=== PATIENT | female | born 1980 | race African-American/Black ===

== ENCOUNTER 2024-03-13 14:30 | Emergency (ER) | payer OTHER ==
[~2024-03-13] VITALS: Ht 157.5 cm; Wt 61.4 kg
[2024-03-13 14:34] VITALS: TEMP 98.2
[2024-03-13] MEDS ORDERED: OMEP40CA21 PO (14:38)
[2024-03-13] MEDS ORDERED: MONT-35 PO (14:38)
[2024-03-13] MEDS ORDERED: ERGO500093 PO (14:38)
[2024-03-13 15:24] LABS: BASOPHILS % (AUTO) 0.5 % (0.0-2.0); EOSINOPHILS % (AUTO) 1.1 % (1.0-6.0); HEMATOCRIT 42.1 % (36-46); HEMOGLOBIN 14.4 g/dL (12.0-16.0); LYMPHOCYTES # (AUTO) 1.8 K/uL (1.0-4.8); LYMPHOCYTES % (AUTO) 30.8 % (22.0-44.0); MEAN CORPUSCULAR HEMOGLOBIN 32.3 pg (26.0-34.0); MEAN CORPUSCULAR HGB CONC 34.2 G/dL (31.0-37.0); MEAN CORPUSCULAR VOLUME 94 fL (80-100); MONOCYTES # (AUTO) 0.5 K/uL (0.1-1.0); NEUTROPHILS # (AUTO) 3.4 K/uL (1.8-7.7); NEUTROPHILS % (AUTO) 59.6 % (40.0-70.0); PLATELET COUNT (AUTO) 241 K/uL (150-450); RED BLOOD CELL COUNT(AUTO) 4.46 MIL/uL (4.00-5.20); RED CELL DISTRIBUTION WIDTH 11.7 % (11.5-14.5); WHITE BLOOD COUNT (AUTO) 5.7 K/uL (4.5-11.0)
[2024-03-13 15:27] LABS: ANION GAP 10 mmol/L (8-16); CALCIUM, TOTAL 9.1 mg/dL (8.8-10.5); CARBON DIOXIDE 29 mmol/L (22-29); CHLORIDE 101 mmol/L (98-107); GLOMERULAR FILTR. RATE CALC > 60 mL/min (>60); GLUCOSE,RANDOM 102 mg/dL (70-110); POTASSIUM 3.8 mmol/L (3.5-5.1); SODIUM SERUM 140 mmol/L (136-145); UREA NITROGEN, BLOOD 9 mg/dL (7-18)
[2024-03-13 15:33] LABS: ALANINE AMINOTRANSFERASE 14 U/L (12-78); ALBUMIN 4.1 g/dL (3.4-5.0); ALKALINE PHOSPHATASE 97 U/L (46-116); ASPARTATE AMINOTRANSFERASE 15 U/L (15-37); BILIRUBIN,TOTAL 0.4 mg/dL (0.1-1.0); TOTAL PROTEIN, SERUM 8.4 g/dL (6.4-8.2)
[2024-03-13 15:51] VITALS: BP 109/70; PULSE 110; RESP 18
== END 2024-03-13 16:22 | disposition home or self-care (01) ==
LOC: EMS 14:31
DX: I95.1 Orthostatic hypotension (principal); F41.9 Anxiety disorder, unspecified; R00.2 Palpitations; R42 Dizziness and giddiness; Z98.51 Tubal ligation status
CPT/HCPCS: 80053; 84703; 85025; 93005; 99284